=== PATIENT | female | born 1960 | race Caucasian/White ===

== ENCOUNTER 2016-08-03 21:12 | Inpatient (IN) | payer BC, OTHER ==
[~2016-08-03] VITALS: Ht 157.5 cm; Wt 74.7 kg
[~2016-08-03 21:12] MED LIST: ADVIN50/60 INH; BACL10TA PO; CETI10TA84 PO; ERGO1CAP35 PO; IPRASOL4 INH; LORA-741 PO; LPT/40 PO; MOME50SP5 NAE; NAPR-1169 PO; PRED20TA2 PO; PROM6.25 PO; PSEU120T2 PO; PSEU60TA80 PO; PTDOPS OPB; TRAM-10 PO
[2016-08-03] MEDS ORDERED: SODIUM CHLORIDE 0.9% 1000ML 1,000 ML IV STA ×3 (21:26→22:03)
[2016-08-03] MEDS ORDERED: ALBUT/IPRATROP 3MG/0.5MG NEB 3 ML VIAL INH STA (21:26)
[2016-08-03] MEDS ORDERED: METHYLPREDNISOLONE 125 MG VIAL IV STA (21:26)
[2016-08-03 21:52] LABS: VEN BLD GAS O2 SATURATION 85.7 %; VEN BLOOD GAS BASE EXCESS 0.3 mmol/L
[2016-08-03] MEDS ORDERED: AZITHROMYCIN 250 MG TAB PO STA (22:03)
[2016-08-03] MEDS ORDERED: CEFTRIAXONE SOD INJ 1 GM ADDVIAL IV STA (22:03)
[2016-08-03 22:04] LABS: PARTIAL THROMBOPLASTIN RATIO 1.1; PROTHROMBIN TIME (PATIENT) 10.4 SECONDS (9.0-12.0)
[2016-08-03 22:10] LABS: ALT/SGPT 18 U/L (12-78); BASO % 0.1 %; BASO ABS # 0.02 K/uL (0-0.2); BLOOD UREA NITROGEN 23 mg/dl (7-18); BUN/CREATININE RATIO 25.9 (10-20); CARBON DIOXIDE 23 mmol/L (21-32); CHLORIDE 105 mmol/L (98-107); COMPLETE YES; EOS % 0.9 %; GLUCOSE 192 mg/dl (70-99); HEMATOCRIT 41.3 % (37-47); IG% 0.2 %; LYMPH ABS # 3.34 K/uL (1.2-3.4); MAGNESIUM 1.9 mg/dl (1.8-2.4); MEAN CELL VOLUME 92.4 fL (80-100); MEAN CORPUSCULAR HEMOGLOBIN 30.9 pg (25-34); MEAN CORPUSCULAR HGB CONC 33.4 g/dl (32-36); MEAN PLATELET VOLUME 10.5 fL (7.4-10.4); MONO % 8.5 %; NEUT % 65.3 %; PLATELET COUNT 266 K/uL (130-400); POTASSIUM 3.3 mmol/L (3.5-5.1); RED BLOOD COUNT 4.47 M/uL (4.2-5.4); SODIUM 140 mmol/L (136-145); WHITE BLOOD COUNT 13.35 K/uL (4.8-10.8)
--- NOTE | 2016-08-03 22:13 | DIAGNOSTIC IMAGING REPORT ---
CHEST ONE VIEW PORTABLE CLINICAL HISTORY: Fever, cough. Tobacco use. COMPARISON STUDY: Chest radiograph March 11, [address] March 13, 2013. FINDINGS: Lung volumes are normal. There is no pneumothorax or pleural effusion. Mild interstitial thickening is present. There is no lobar consolidation. Cardiac size is normal. Mediastinal contours are normal. There is no convincing evidence for pulmonary edema. There may be calcific tendinitis of the right rotator cuff. IMPRESSION: Mild nonspecific interstitial thickening. Electronically signed by: Rakesh Lutz M.D. 08/03/2016 10:12 PM Dictated Date/Time: 08/03/2016 10:07 PM
[2016-08-03 22:15] LABS: ALB/GLOB RATIO 0.8 (0.9-2); ALKALINE PHOSPHATASE 86 U/L (45-117); AST/SGOT 13 U/L (15-37)
[2016-08-03 22:19] LABS: CALCIUM 8.4 mg/dl (8.5-10.1)
[2016-08-03] MEDS ORDERED: IPRASOL4 INH (22:33)
[2016-08-03] MEDS ORDERED: GLC500 PO (22:33)
[2016-08-03] MEDS ORDERED: FLUT1INH INH (22:33)
--- NOTE | 2016-08-03 22:33 | History and Physical ---
History & Physical Date & Time of Service: Aug 03, 2016 at 22:32 Chief Complaint: Fever,Tightness In Chest,Cough Primary Care Physician: Lisa Osei D.O. History of Present Illness Source: patient 56 yo F with hx of type 2 DM , depression , ongoing tobacco use, COPD , presented to ED with complain of ongoing cough , SOB for the past 1 weeks pt mentioned that she felt sick stayed in bed all day last Friday , started to have cough with whitish sputum production mentions of having chills thinks the rain and mold has caused to worsened her COPD had significant SOB with ASENCIO has not seek any medical advice smokes 1 pk cig a day , has not been able to smoke in past 1 week due to SOB / cough mentions of smoking 1 cig today with Menthol in it ? to open up her airways in the ED , pt continues to cough was found to be hypoxic in room air 89 % spo2 improved to 93 % with 2 L 02 Past Medical/Surgical History Medical Problems: (1) ASTHMA, UNSPECIFIED Status: Chronic (2) Cholecystectomy Status: Resolved (3) Hysterectomy Status: Resolved Social History Smoking Status: Current Every Day Smoker Drug Use: none Marital Status: single Housing status: lives with family Occupational Status: employed Immunizations History of Influenza Vaccine: Yes Influenza Vaccine Date: Jan 10, 2013 History of Tetanus Vaccine?: Yes Tetanus Immunization Date: Nov 23, 2012 History of Pneumococcal: Unknown Pneumococcal Date: Sep 24, 2008 History of Hepatitis B Vaccine: Yes Multi-Drug Resistant Organisms History of MDRO: No Allergies Coded Allergies: Naproxen (Unverified Adverse Reaction, Intermediate, N/V, 03/12/13) Home Medications Scheduled Atorvastatin (Lipitor), 40 MG PO DAILY Fluticasone Furoate-Vilanterol (Breo Ellipta), 1 PUFF INH DAILY Fluticasone Prop/Salmeterol (Advair Diskus 500/50 60 Dose), 1 PUFF INH BID Metformin HCl (Metformin HCl), 500 MG PO BID Prednisone (Prednisone Tab), 0 PO DAILY Scheduled PRN Ipratropium-Albuterol (Duoneb), 1 TREATMENT INH Q4H PRN for SOB/Wheezing Lorazepam (Ativan), 0.5 MG PO TID PRN for Anxiety Tramadol (Ultram), 50 MG PO Q6H PRN for Pain Review of Systems Constitutional: + fever, + chills, + sweats, + weakness, + fatigue Respiratory: + cough, + sputum, + wheezing, + shortness of breath, + dyspnea on exertion, + dyspnea at rest Cardiovascular: + chest pain (with coughing ) Abdomen: + diarrhea (has chronic diarrhea with metformin ) Genitourinary - Female: No dysuria, No urinary frequency, No urinary urgency, No urinary incontinence, No urinary retention, No hematuria, No dysmenorrhea, No menorrhagia, No metrorrhagia, No rash, No vaginal bleeding, No vaginal discharge, No vaginal itching, No vulvodynia, No , No problem reported Neurologic: No memory loss, No paralysis, No weakness, No numbness/tingling, No vertigo, No balance problems, No problem reported Physical Exam Vital Signs Date Time Temp Pulse Resp B/P (MAP) Pulse Ox O2 Delivery O2 Flow Rate FiO2 08/03/16 21:49 94 Nasal Cannula 2.0 08/03/16 21:44 97 22 122/69 89 Room Air 08/03/16 21:30 91 08/03/16 21:26 91 Room Air 08/03/16 21:19 91 Room Air 08/03/16 21:13 37.5 96 20 135/81 89 Room Air General Appearance: no apparent distress Eyes: sclerae normal Respiratory/Chest: + respiratory distress, + decreased breath sounds, + rhonchi , + wheezing Cardiovascular: + tachycardia Abdomen/GI: normal bowel sounds, non tender, soft Extremities/Musculoskelatal: no pedal edema, normal range of motion Neurologic/Psych: alert, normal mood/affect, oriented x 3 Skin: normal color, warm/dry, no rash Lymphatic: no adenopathy Diagnostics Laboratory Results Results Past 24 Hours Test 08/03/16 21:45 08/03/16 21:46 08/03/16 21:49 Range/Units White Blood Count 13.35 4.8-10.8 K/uL Red Blood Count 4.47 4.2-5.4 M/uL Hemoglobin 13.8 12.0-16.0 g/dL Hematocrit 41.3 37-47 % Mean Corpuscular Volume 92.4 80-100 fL Mean Corpuscular Hemoglobin 30.9 25-34 pg Mean Corpuscular Hemoglobin Concent 33.4 32-36 g/dl Platelet Count 266 130-400 K/uL Mean Platelet Volume 10.5 7.4-10.4 fL Neutrophils (%) (Auto) 65.3 % Lymphocytes (%) (Auto) 25.0 % Monocytes (%) (Auto) 8.5 % Eosinophils (%) (Auto) 0.9 % Basophils (%) (Auto) 0.1 % Neutrophils # (Auto) 8.70 1.4-6.5 K/uL Lymphocytes # (Auto) 3.34 1.2-3.4 K/uL Monocytes # (Auto) 1.14 0.11-0.59 K/uL Eosinophils # (Auto) 0.12 0-0.5 K/uL Basophils # (Auto) 0.02 0-0.2 K/uL RDW Standard Deviation 41.1 36.4-46.3 fL RDW Coefficient of Variation 12.1 11.5-14.5 % Immature Granulocyte % (Auto) 0.2 % Immature Granulocyte # (Auto) 0.03 0.00-0.02 K/uL Prothrombin Time 10.4 9.0-12.0 SECONDS Prothromb Time International Ratio 1.0 0.9-1.1 Activated Partial Thromboplast Time 28.7 21.0-31.0 SECONDS Partial Thromboplastin Ratio 1.1 Venous Blood pH 7.44 7.36-7.41 Venous Blood Partial Pressure CO2 37 38.0-50.0 mmHg Venous Blood Partial Pressure O2 50 mmHg Venous Blood HCO3 24 mmol/L Venous Blood Oxygen Saturation 85.7 % Venous Blood Base Excess 0.3 mmol/L Sodium Level 140 136-145 mmol/L Potassium Level 3.3 3.5-5.1 mmol/L Chloride Level 105 98-107 mmol/L Carbon Dioxide Level 23 21-32 mmol/L Anion Gap 12.0 3-11 mmol/L Blood Urea Nitrogen 23 7-18 mg/dl Creatinine 0.90 0.60-1.20 mg/dl Est Creatinine Clear Calc Drug Dose 67.1 ml/min Estimated GFR () 84.0 Estimated GFR (Non- 72.5 BUN/Creatinine Ratio 25.9 10-20 Random Glucose 192 70-99 mg/dl Calcium Level 8.4 8.5-10.1 mg/dl Magnesium Level 1.9 1.8-2.4 mg/dl Total Bilirubin 0.3 0.2-1 mg/dl Aspartate Amino Transf (AST/SGOT) 13 15-37 U/L Alanine Aminotransferase (ALT/SGPT) 18 12-78 U/L Alkaline Phosphatase 86 45-117 U/L Total Creatine Kinase 97 26-192 U/L Creatine Kinase MB 1.0 0.5-3.6 ng/ml Creatine Kinase MB Ratio 1.0 0-3.0 Troponin I < 0.015 0-0.045 ng/ml Total Protein 7.1 6.4-8.2 gm/dl Albumin 3.2 3.4-5.0 gm/dl Globulin 3.9 2.5-4.0 gm/dl Albumin/Globulin Ratio 0.8 0.9-2 Bedside Lactic Acid Venous 2.63 0.90-1.70 mmol/L Bedside Troponin I < 0.030 0-0.045 ng/ml Microbiology Results 08/03/16 Blood Culture, Received Pending 08/03/16 Blood Culture, Received Pending Diagnostic Radiology CHEST ONE VIEW PORTABLE CLINICAL HISTORY: Fever, cough. Tobacco use. COMPARISON STUDY: Chest radiograph March 11, [address] March 13, 2013. FINDINGS: Lung volumes are normal. There is no pneumothorax or pleural effusion. Mild interstitial thickening is present. There is no lobar consolidation. Cardiac size is normal. Mediastinal contours are normal. There is no convincing evidence for pulmonary edema. There may be calcific tendinitis of the right rotator cuff. IMPRESSION: Mild nonspecific interstitial thickening. Impression Assessment and Plan SOB /COUGH /COPD EXACERBATION : presented with hypoxia , COPD exacerbation symptom improved with Nex tx , Solu medrol admit to tele 02 supplement IV steroid 40 mg q 8hrs Duo neb tx empiric abx with Levaquin Pulmonology eval requested -pt is known to Moe Wan PA-C /Dr Cohn TOBACCO USE : smokes 1 pk cig a day nicotine patch ordered smoking cessation requested TYPE 2 DM : on Metformin BSG elevated > 200 poorly compliant - mentions of not taking Metformin for GI symptom /Diarrhea insulin SSI/BASAL Lantus ordered HB A1c in am lab expected BSG to be elevated with IV steroids Pharmacy consulted for glycemic control HYPERLIPIDEMIA : cont statin DEPRESSION /ANXIETY DISORDER cont home regimen of PRN Ativan CODE STATUS : DNR As per patient DVT PROPHYLAXIS : sub q heparin DISPOSITION : to home when medically stable Medicine follow up with Dr Wagner Level of Care Telemetry Resuscitation Status DO NOT RESUSCITATE VTE Prophylaxis Given or contraindicated: Unfractionated heparin SQ Additional Copies To Lisa Osei D.O.
[2016-08-03] MEDS ORDERED: PRED20TA2 PO (22:34)
[2016-08-03] MEDS ORDERED: POTASSIUM CHLORIDE 10 MEQ TABCR PO STA (22:40)
[2016-08-03] MEDS ORDERED: GLUCAGON FOR INJ 1 MG VIAL SQ PRN (22:45)
[2016-08-03] MEDS ORDERED: GLUCOSE 10 TABS/TUBE PO PRN (22:45)
[2016-08-03] MEDS ORDERED: ACETAMINOPHEN 325 MG TAB PO PRN (22:45)
[2016-08-03] MEDS ORDERED: DEXTROSE 50% 50 ML SYR IV PRN (22:45)
[2016-08-03] MEDS ORDERED: ZOLPIDEM TARTRATE 5 MG TAB PO PRN (22:45)
[2016-08-03] MEDS ORDERED: LORAZEPAM 0.5 MG TAB PO PRN (22:45)
[2016-08-03] MEDS ORDERED: POLYETHYLENE (MIRALAX) 17 GM PACK PO PRN (22:45)
[2016-08-03] MEDS ORDERED: GLUCOSE 40% GEL 15 GM TUBE PO PRN (22:45)
[2016-08-03] MEDS ORDERED: TRAMADOL HCL 50 MG TAB PO PRN (22:45)
[2016-08-03] MEDS ORDERED: ONDANSETRON INJ 2 MG/ML 2 ML VIAL IV PRN (22:45)
[2016-08-03] MEDS ORDERED: ALUMINUM/MAGNESIUM/SIMETH (MAALOX MAX) 30 ML UDC PO PRN (22:45)
[2016-08-03] MEDS ORDERED: MAGNESIUM HYDROXIDE SUSP 30 ML UDC PO PRN (22:45)
[2016-08-03] MEDS ORDERED: LEVOFLOXACIN / D5W 500 MG in PREMIXED IN D5W 100 ML IV SCH (23:00)
[2016-08-03 23:10] VITALS: BP 136/57; PULSE 88; TEMP 37.2; O2SAT 91; Ht 157.5 cm; Wt 74.7 kg
[2016-08-03] MEDS ORDERED: GUAIFENESIN/CODEINE 100MG/10MG 5ML UDC PO PRN (23:15)
[2016-08-03] MEDS ORDERED: PHARMACY GLYCEMIC MGMT CONSULT PRN (23:30)
[2016-08-03] MEDS: ALBUT/IPRATROP 3MG/0.5MG NEB 3 ML VIAL INH SCH (23:40)
[2016-08-03 23:41] VITALS: PULSE 90; O2SAT 94
[2016-08-03] MEDS: SODIUM CHLORIDE 0.9% 1000ML 1,000 ML IV SCH (23:59)
[2016-08-04] VITALS (11 sets, daily range): BP systolic 109–143; BP diastolic 58–76; PULSE 56–99; TEMP 36.4–37; O2SAT 90–94
[2016-08-04] MEDS: NICOTINE 21 MG/24 HR TDSY TD SCH
[2016-08-04] MEDS: INSULIN ASPART 100 UNITS/ML 3 ML PEN SC SCH ×5 (00:06→21:26)
[2016-08-04] MEDS: INSULIN GLARGINE SOLOSTAR 100 UNITS/ML 3 ML PEN SC SCH ×3 (00:07→21:26)
[2016-08-04 02:23] LABS: URINE APPEARANCE CLEAR (CLEAR); URINE BILIRUBIN NEG (NEG); URINE COLOR YELLOW; URINE NITRITE NEG (NEG); URINE SPECIFIC GRAVITY 1.015 (1.000-1.030); UROBILINOGEN NEG (NEG); ZZUR CULT IF INDIC CLEAN CATCH NO
[2016-08-04 02:28] LABS: MANUAL MICROSCOPIC REQUIRED? NO; REVIEW REQ? NO
--- NOTE | 2016-08-04 05:05 | EMERGENCY ROOM VISIT NOTE ---
History First contact with patient: 21:19 Chief Complaint: SHORTNESS OF BREATH Stated Complaint: COPD EXACERBATION Nursing Triage Summary: patient presents with c/o shortness of breath, congestion, cough for past four days that have not improved. also c/o low grade fevers. History of Present Illness The patient is a 56 year old female who presents to the Emergency Room with complaints of cough, congestion, wheezing, shortness of breath with fever and chills for the past few days. Patient states her home sats were in the 70s. She tried a nebulizer with no improvement. Patient denies abdominal pain, neck stiffness, headache, vomiting, diarrhea, sore throat. She is tolerate by mouth fluids and food. She continues to smoke. She does have asthma. Review of Systems See HPI for pertinent positives & negatives. A total of 10 systems reviewed and were otherwise negative. Past Medical/Surgical History Medical Problems: (1) ASTHMA, UNSPECIFIED (2) Cholecystectomy (3) COPD exacerbation (4) Hysterectomy Social History Smoking Status: Current Every Day Smoker Alcohol Use: none Drug Use: none Marital Status: single Housing Status: lives with family Occupation Status: employed Current/Historical Medications Scheduled Atorvastatin (Lipitor), 40 MG PO DAILY Fluticasone Furoate-Vilanterol (Breo Ellipta), 1 PUFF INH DAILY Fluticasone Prop/Salmeterol (Advair Diskus 500/50 60 Dose), 1 PUFF INH BID Metformin HCl (Metformin HCl), 500 MG PO BID Prednisone (Prednisone Tab), 0 PO DAILY Scheduled PRN Ipratropium-Albuterol (Duoneb), 1 TREATMENT INH Q4H PRN for SOB/Wheezing Lorazepam (Ativan), 0.5 MG PO TID PRN for Anxiety Tramadol (Ultram), 50 MG PO Q6H PRN for Pain Allergies Coded Allergies: Naproxen (Unverified Adverse Reaction, Intermediate, N/V, 03/12/13) Physical Exam Vital Signs Date Time Temp Pulse Resp B/P (MAP) Pulse Ox O2 Delivery O2 Flow Rate FiO2 08/03/16 21:49 94 Nasal Cannula 2.0 08/03/16 21:44 97 22 122/69 89 Room Air 08/03/16 21:30 91 08/03/16 21:26 91 Room Air 08/03/16 21:19 91 Room Air 08/03/16 21:13 37.5 96 20 135/81 89 Room Air Pain Rating (0-10): 0 Physical Exam VITALS: Vitals are noted on the nurse's note and reviewed by myself. Vital signs hypoxic GENERAL: Pleasant female having difficulty speaking in full sentences, audible wheeze SKIN: The skin was without rashes, erythema, edema, or bruising. There is no tenting of the skin. Capillary reflex less than 2 seconds. HEAD: Normocephalic atraumatic. EARS: External auditory canals clear, tympanic membranes pearly gtz without erythema or effusion bilaterally. EYES: Pupils equal round and reactive to light and accommodation. Conjunctivae without injection, sclerae without icterus. Extraocular movements intact. NOSE: Patent, turbinates without inflammation or discharge. No sinus tenderness. MOUTH: Mucous membranes moist. Pharynx without erythema or exudate. Uvula midline. Airway patent. Tongue does not deviate. NECK: Supple without nuchal rigidity. No lymphadenopathy. No thyromegaly. Cervical spine is nontender. No JVD. HEART: Regular rate and rhythm without murmurs gallops or rubs. LUNGS: Diffuse inspiratory and end expiratory wheezes, without rales or rhonchi. No dullness to percussion. No retractions or accessory muscle use. ABDOMEN: Positive bowel sounds x 4. Normal tympanic percussion. Soft, nontender, without masses or organomegaly. Felton sign negative. No guarding or rebound tenderness. MUSCULOSKELETAL: No muscle atrophy, erythema, or edema noted. NEURO: Patient was alert and oriented to person place and time. Normal sensation to light and sharp touch. No focal neurological deficits. Medical Decision & Procedures Laboratory Results Test 08/03/16 21:45 08/03/16 21:46 08/03/16 21:49 RDW Standard Deviation 41.1 fL (36.4-46.3) RDW Coefficient of Variation 12.1 % (11.5-14.5) White Blood Count 13.35 K/uL (4.8-10.8) Red Blood Count 4.47 M/uL (4.2-5.4) Hemoglobin 13.8 g/dL (12.0-16.0) Hematocrit 41.3 % (37-47) Mean Corpuscular Volume 92.4 fL (80-100) Mean Corpuscular Hemoglobin 30.9 pg (25-34) Mean Corpuscular Hemoglobin Concent 33.4 g/dl (32-36) Platelet Count 266 K/uL (130-400) Mean Platelet Volume 10.5 fL (7.4-10.4) Neutrophils (%) (Auto) 65.3 % Lymphocytes (%) (Auto) 25.0 % Monocytes (%) (Auto) 8.5 % Eosinophils (%) (Auto) 0.9 % Basophils (%) (Auto) 0.1 % Neutrophils # (Auto) 8.70 K/uL (1.4-6.5) Lymphocytes # (Auto) 3.34 K/uL (1.2-3.4) Monocytes # (Auto) 1.14 K/uL (0.11-0.59) Eosinophils # (Auto) 0.12 K/uL (0-0.5) Basophils # (Auto) 0.02 K/uL (0-0.2) Immature Granulocyte % (Auto) 0.2 % Immature Granulocyte # (Auto) 0.03 K/uL (0.00-0.02) Prothrombin Time 10.4 SECONDS (9.0-12.0) Prothromb Time International Ratio 1.0 (0.9-1.1) Activated Partial Thromboplast Time 28.7 SECONDS (21.0-31.0) Partial Thromboplastin Ratio 1.1 Venous Blood pH 7.44 (7.36-7.41) Venous Blood Partial Pressure CO2 37 mmHg (38.0-50.0) Venous Blood Partial Pressure O2 50 mmHg Venous Blood HCO3 24 mmol/L Venous Blood Oxygen Saturation 85.7 % Venous Blood Base Excess 0.3 mmol/L Est Creatinine Clear Calc Drug Dose 67.1 ml/min Magnesium Level 1.9 mg/dl (1.8-2.4) Total Bilirubin 0.3 mg/dl (0.2-1) Aspartate Amino Transf (AST/SGOT) 13 U/L (15-37) Alanine Aminotransferase (ALT/SGPT) 18 U/L (12-78) Alkaline Phosphatase 86 U/L (45-117) Total Creatine Kinase 97 U/L (26-192) Creatine Kinase MB 1.0 ng/ml (0.5-3.6) Creatine Kinase MB Ratio 1.0 (0-3.0) Troponin I < 0.015 ng/ml (0-0.045) Total Protein 7.1 gm/dl (6.4-8.2) Albumin 3.2 gm/dl (3.4-5.0) Globulin 3.9 gm/dl (2.5-4.0) Albumin/Globulin Ratio 0.8 (0.9-2) Procalcitonin < 0.05 ng/ml (0-0.5) Bedside Lactic Acid Venous 2.63 mmol/L (0.90-1.70) Bedside Troponin I < 0.030 ng/ml (0-0.045) Medications Administered Medications (Trade) Dose Ordered Sig/Katey Route Start Time Stop Time Status Last Admin Dose Admin Albuterol/ Ipratropium (Duoneb) 3 ml NOW STAT INH 08/03/16 21:26 08/03/16 21:29 DC 08/03/16 21:26 3 ML Methylprednisolone Sodium Succinate (Solu-Medrol IV) 125 mg NOW STAT IV 08/03/16 21:26 08/03/16 21:29 DC 08/03/16 21:45 125 MG Sodium Chloride 1,000 ml @ 999 mls/hr Q1H1M STAT IV 08/03/16 21:26 08/03/16 22:26 DC 08/03/16 21:45 999 MLS/HR Sodium Chloride 1,000 ml @ 125 mls/hr Q8H STAT IV 08/03/16 21:26 08/03/16 23:20 DC 08/03/16 21:45 125 MLS/HR Ceftriaxone Sodium (Rocephin Inj) 1 gm NOW STAT IV 08/03/16 22:03 08/03/16 22:04 DC 08/03/16 22:11 1 GM Azithromycin (Zithromax Tab) 500 mg NOW STAT PO 08/03/16 22:03 08/03/16 22:04 DC 08/03/16 22:11 500 MG Sodium Chloride 1,000 ml @ 999 mls/hr Q1H1M STAT IV 08/03/16 22:03 08/03/16 23:03 DC 08/03/16 22:12 999 MLS/HR ED Course Prior records/ancillary studies reviewed. Triage Nursing notes reviewed. Additional history obtained from the family. The patient's history was concerning for respiratory difficulties. Differential diagnosis: Etiologies such as infections, reactive airway disease, pneumonia, pneumothorax , COPD, CHF, cardiac ischemia, pulmonary embolism, musculoskeletal, gastrointestinal, as well as others were entertained. Physical examination: As above. ER treatment provided: Nebulizer, antibiotics, steroids On reassessment the patient felt better. Diagnostic interpretation by me: The electrocardiogram was negative for acute ischemic or pathologic change. Normal sinus, right bundle branch block, no acute ST-T wave changes, rate of 92. Impression right bundle branch block interpreted by myself The labs revealed leukocytosis, elevated lactic acid Imaging studies: Chest x-ray as above. CLINICAL HISTORY: Fever, cough. Tobacco use. COMPARISON STUDY: Chest radiograph March 11, [address] March 13, 2013. FINDINGS: Lung volumes are normal. There is no pneumothorax or pleural effusion. Mild interstitial thickening is present. There is no lobar consolidation. Cardiac size is normal. Mediastinal contours are normal. There is no convincing evidence for pulmonary edema. There may be calcific tendinitis of the right rotator cuff. IMPRESSION: Mild nonspecific interstitial thickening. Electronically signed by: Rakesh Lutz M.D. Consultation: A consultation was placed with Dr. Philip, hospitalist. The case was discussed and diagnostics were reviewed. The patient was evaluated in the ER for further treatment. This appears to be consistent with asthma exacerbation with hypoxemia. Patient be evaluated by medicine for possible admission. Her sats are still low. She is still wheezing. No pneumonia. She had a high lactic acid was given antibiotics. She was hydrated as above. By the evaluation outlined above emergent etiologies such as CHF, cardiac ischemia, pulmonary embolism, pneumothorax, musculoskeletal, as well as others were deemed relatively unlikely. The pt informed about the findings as listed above. All questions were answered and pleased with the treatment. Case reviewed with my attending Medical Decision As above Impression Primary Impression: Asthma with exacerbation Additional Impression: Hypoxemia Departure Information Dispostion Admitted as an inpatient Condition GOOD Referrals Lisa Osei D.O. (PCP) Forms HOME CARE DOCUMENTATION FORM, IMPORTANT VISIT INFORMATION Patient Instructions My [facility] Problem Qualifiers
[2016-08-04] MEDS ORDERED: METHYLPREDNISOLONE IV 40 MG in SYRINGE 0 ML IV SCH (06:00)
[2016-08-04 06:33] LABS: HEMATOCRIT 39.8 % (37-47); MEAN CELL VOLUME 92.3 fL (80-100); MEAN CORPUSCULAR HEMOGLOBIN 31.6 pg (25-34); MEAN CORPUSCULAR HGB CONC 34.2 g/dl (32-36); MEAN PLATELET VOLUME 10.5 fL (7.4-10.4); PLATELET COUNT 246 K/uL (130-400); RED BLOOD COUNT 4.31 M/uL (4.2-5.4); WHITE BLOOD COUNT 7.52 K/uL (4.8-10.8)
[2016-08-04] MEDS: ALBUT/IPRATROP 3MG/0.5MG NEB 3 ML VIAL INH SCH ×4 (07:01→19:14)
[2016-08-04 07:18] LABS: BUN/CREATININE RATIO 22.1 (10-20); CALCIUM 8.3 mg/dl (8.5-10.1); CREATININE 0.84 mg/dl (0.60-1.20); POTASSIUM 4.1 mmol/L (3.5-5.1)
[2016-08-04 07:31] LABS: BETA-HYDROXYBUTYRATE 0.86 mg/dL (0.2-2.81)
[2016-08-04] MEDS: FLUTICASONE/SALMETEROL (ADVAIR) 500/50 INH 14 PUFF INH SCH ×2 (07:59→21:22)
[2016-08-04] MEDS: SODIUM CHLORIDE 0.9% 1000ML 1,000 ML IV SCH ×2 (08:00→23:13)
[2016-08-04] MEDS: ATORVASTATIN 40 MG TAB PO SCH (08:00)
[2016-08-04] MEDS: HEPARIN SOD 5000 UNIT/0.5 ML CARP SQ SCH ×2 (08:02→21:00)
[2016-08-04] MEDS ORDERED: INSULIN ASPART 100 UNITS/ML 3 ML PEN SC ONE (09:15)
[2016-08-04] MEDS ORDERED: INSULIN GLARGINE SOLOSTAR 100 UNITS/ML 3 ML PEN SC ONE (09:15)
--- NOTE | 2016-08-04 12:24 | Pharmacy Progress Note ---
Glycemic Control Intl Consult Date of Service Aug 04, 2016. Scope Glycemic Pharmacist consulted by Dr Philip on 08/04/16 for glycemic control and to write orders per [facility] inpatient glycemic control protocol Objective Weight (Kilograms): 73.800 Accuchecks BSG (last 24hrs): Test 08/03/16 21:45 08/04/16 00:02 08/04/16 06:16 08/04/16 11:36 Random Glucose 192 mg/dl (70-99) 307 mg/dl (70-99) Bedside Glucose 239 mg/dl (70-90) 212 mg/dl (70-90) Laboratory Data (last 24hrs) Test 08/03/16 21:45 08/04/16 06:16 Anion Gap 12.0 mmol/L 10.0 mmol/L BUN/Creatinine Ratio 25.9 22.1 Blood Urea Nitrogen 23 mg/dl 19 mg/dl Creatinine 0.90 mg/dl 0.84 mg/dl Potassium Level 3.3 mmol/L 4.1 mmol/L Sodium Level 140 mmol/L 143 mmol/L White Blood Count 13.35 K/uL 7.52 K/uL Red Blood Count 4.47 M/uL Hemoglobin 13.8 g/dL Hematocrit 41.3 % Mean Corpuscular Volume 92.4 fL Mean Corpuscular Hemoglobin 30.9 pg Mean Corpuscular Hemoglobin Concent 33.4 g/dl Platelet Count 266 K/uL Mean Platelet Volume 10.5 fL Neutrophils (%) (Auto) 65.3 % Lymphocytes (%) (Auto) 25.0 % Monocytes (%) (Auto) 8.5 % Eosinophils (%) (Auto) 0.9 % Basophils (%) (Auto) 0.1 % Neutrophils # (Auto) 8.70 K/uL Lymphocytes # (Auto) 3.34 K/uL Monocytes # (Auto) 1.14 K/uL Eosinophils # (Auto) 0.12 K/uL Basophils # (Auto) 0.02 K/uL HbA1c Test 08/04/16 06:16 Recent Pertinent Medications Outpatient Anti-diabetic Regimen: * Metformin 500mg PO BID * A1c = ? results are pending The patient is currently receiving: * Basal insulin: Lantus 10 units every 12 hours * Correctional Insulin: Novolog Correction per scale ACHS Goal Range: Low 100 mg/dL - High 140 mg/dL Correction Factor: 30 mg/dL/unit * Prandial insulin: Per carb ratio of 1 unit per 15 grams CHO consumed * Oral Agents: None currently Risk Factors for Insulin Resistance: * Steroids: Solu-Medrol 125mg x 1, followed by 40mg IV Q 8 hours * Infection: COPD exacerbation; receiving Levofloxacin IV * Diet: ordered T2DM diet and tolerating well thus far Assessment & Plan ASSESSMENT: 08/04/16 * Type 2 diabetic admitted yesterday for fever, cough, chest "tightness" and increased sputum production - patient is being treated for COPD exac w/ ABX, nebs and steroids * Degree of glycemic control w/ metformin monotherapy as an outpatient unclear, an A1c has been ordered for today however the result is not yet available. Her A1c 03/2016 was 7.7% * BSGs did climb overnight and peaked at 307 and this was a fasting number - the patient is clearly basal insulin deficient - however only had 10 units of Lantus on board (1/2 of the total daily basal dose). I do suspect that she may require more however with the current steroid dose. * Novolog CF and CR may not be adequate based upon current response, will escalate these doses as well. I suspect the patient will require a minimum 0.6- 0.7units/kg/day from both basal + bolus insulin. PLAN FOR INPATIENT GLYCEMIC CONTROL: * Increasing Lantus to 14 units SQ BID; give additional 4 units x 1 this AM * Changing correction factor to 20 mg/dl/unit * Changing carb ratio to 1 unit per 8 grams CHO consumed * Changing goal range to Low 110 mg/dL - High 140 mg/dL * Add BSG check at 0200 tonight and cover w/ above Novolog order * Reevaluate insulin doses with each step down in steroid dose * Please note that the plan above was derived based on current level of insulin resistance and hospital stress. These recommendations are appropriate for inpatient admission only. Plan of care upon discharge will need to be reassessed to avoid potential outpatient hypo/hyperglycemia. Thank you.
--- NOTE | 2016-08-04 12:27 | Pulmonary Consultation ---
History General Date of Service: Aug 04, 2016. Stated Complaint: Shortness of Breath HPI The patient is a 56 year old female who presents to [facility] with complaints of Copd Exacerbation. The patient's primary care provider is Lisa Osei D.O.. 56 yo F with hx of type 2 DM , depression , ongoing tobacco use, COPD , presented to ED with complain of ongoing cough , SOB for the past 1 week. The patient notes chest tightness and progressive dyspnea on exertion over the previous week. Last week and she noted fever or chills and right naris but no associated productive cough, pleurisy R classic cardiac chest pain. She has had a long history with diagnosed COPD but her previous pulmonary function test did not verify this diagnosis. The patient has received his antibiotics, steroids and diuresis over the past 24 hours and notes a dramatic improvement in her overall respiratory status. Denies: Fever, chills, cardiac chest pain, pleurisy, productive cough Current Work-Up WBC: 13K8K (Neutro#: 8.70>) PLT: 266K INR/PT/aPTT: 1.0/10.4/28.7 BUN/Cr: 23/0.9019/0.84 Procalcitonin: <0.05 (LTRIs) VB.44/37 corrected to ABG 7.48/31 EKG right bundle branch block rate 92 stable compared to 03/13/2013 Radiology CXR(08/03/16) signs of pulmonary edema, and streak atelectasis in the RLL Previous Work-Up PFT (11/03/13) WNL Spirometry : FEV1/FVC: 81, FEV1: 91%, FVC: 93%, borderline FVC increase s/ p dilators Volumes: T% DLCO: 89% Oximetry Study (04/28-08/07) Longest continuous time with SaO2 <88% was 8minutes and 32 seconds ABG (04/12/99) 7.39/42/81/26 (RA) A-a : none (03/12/13) 7.38/45/51/26 (4.5L) A-a: 133 Radiology CXR (03/11/13) bi-basilar parenchymal changes with hilar fullness CTA (03/13/13) No signs of PE Bilateral GGO with atelectasis vs. mucus plugging Cardiac Echo (03/12/13) LV: EF=>70%, hyperdynamic RV: systolic function WNL, TAPSE >1.5cm AV: sclerotic without significant aortic valvular stenosis MV: moderate annular calcification Diastolic dysfunction grade II Current Treatments: 1) Advair 500/50 1 puff BID 2) Methyprednisolone 40mg 8Q IV 3) DuoNebs QID 4) Robitussin-AC 5) Levofoxacin 500mg Historian: patient, EMS Review of Systems Constitutional: reports: no symptoms Eyes: reports: no symptoms ENT: reports: no symptoms Cardiovascular: reports: no symptoms Respiratory: reports: as stated in HPI Gastrointestinal: reports: no symptoms Genitourinary - Female: reports: no symptoms Musculoskeletal: reports: no symptoms Neurologic: reports: no symptoms Psychiatric: reports: no symptoms Endocrine: no symptoms Hematologic / Lymphatic: no symptoms Allergic / Immunologic: no symptoms Past Medical History Past Medical History: 1) ASTHMA, UNSPECIFIED 2) Sinusitis 3) Depression 4) Hyperlipidemia 5) Tobacco use disorder Past Surgical History: 1) Cholecystectomy 2) Hysterectomy 3) Neuroplasty Decompression Median Nerve at Carpal Tunnel Family History Diabetes, neuropathy, coronary artery disease Social History Smoking Status: Current Every Day Smoker Drug Use: none Marital Status: single Housing status: lives with family Occupational Status: employed Hx Tobacco Use In Past Year?: Yes Smoking Status: Current Every Day Smoker Marital status: single Housing status: lives with family Occupational Status: employed Immunizations History of Influenza Vaccine: Yes Influenza Vaccine Date: Jan 10, 2013 History of Tetanus Vaccine?: Yes Tetanus Immunization Date: Nov 23, 2012 History of Pneumococcal: Unknown Pneumococcal Date: Sep 24, 2008 History of Hepatitis B Vaccine: Yes History of MDRO History of MDRO: No Allergies Coded Allergies: Naproxen (Unverified Adverse Reaction, Intermediate, N/V, 03/12/13) Current Medications Reported Home Medications Medications Dose Route/Sig Max Daily Dose Days Date Category Dose Instructions Prednisone Tab (Prednisone) 20 Mg Tab 0 PO DAILY 08/03/16 Reported "COPD KIT" Duoneb (Ipratropium-Albuterol) 3 Ml Nebu 1 Treatment INH Q4H PRN 08/03/16 Reported Breo Ellipta (Fluticasone Furoate-Vilanterol) 1 Inh Inh 1 Puff INH DAILY 08/03/16 Reported Metformin HCl 500 Mg Tab 500 Mg PO BID 08/03/16 Reported Advair Diskus 500/50 60 Dose (Fluticasone Prop/Salmeterol) 1 Ea Aerp 1 Puff INH BID 03/17/13 Rx Ativan (Lorazepam) 0.5 Mg Tab 0.5 Mg PO TID PRN 03/12/13 Reported Ultram (Tramadol HCl) 50 Mg Tab 50 Mg PO Q6H PRN 03/12/13 Reported Lipitor (Atorvastatin) 40 Mg Tab 40 Mg PO DAILY 03/12/13 Reported PATIENT UNSURE IF 40MG OR 80MG. Physical Physical Exam Vital Signs: Date Time Temp Pulse Resp B/P (MAP) Pulse Ox O2 Delivery O2 Flow Rate FiO2 08/04/16 12:00 92 Room Air 08/04/16 08:35 36.9 82 16 120/70 (87) 91 Nasal Cannula 2.0 08/04/16 08:00 92 Nasal Cannula 3.0 08/04/16 07:01 68 16 92 Room Air 08/04/16 04:00 94 Nasal Cannula 3.0 08/04/16 04:00 36.8 79 17 118/69 (85) 94 Nasal Cannula 2.0 08/03/16 23:41 90 16 94 Nasal Cannula 3.0 08/03/16 23:10 37.2 88 22 136/57 91 Nasal Cannula 3.0 08/03/16 22:49 97 22 120/70 93 Nasal Cannula 3.0 08/03/16 21:49 94 Nasal Cannula 2.0 08/03/16 21:44 97 22 122/69 89 Room Air 08/03/16 21:30 91 08/03/16 21:26 91 Room Air 08/03/16 21:19 91 Room Air 08/03/16 21:13 37.5 96 20 135/81 89 Room Air General Appearance: WELL-APPEARING, NO APPARENT DISTRESS Head: NORMOCEPHALIC, ATRAUMATIC Eyes: PERRLA, NO DISCHARGE, EOMI, SCLERAE NORMAL, CONJUNCTIVAE NORMAL ENT: NORMAL EAR EXAM, NORMAL NASAL EXAM, NORMAL MOUTH EXAM, NORMAL THROAT EXAM , NORMAL DENTAL EXAM, NORMAL SINUS EXAM Neck: NORMAL RANGE OF MOTION, NO TENDERNESS, TRACHEA MIDLINE, NO STRIDOR Respiratory: other (mild expiratory wheezing/thoracic ultrasound: B-lines approximately the bottom 20% of the thorax bilaterally no pleural effusion noted ) Cardiovasular: REGULAR RATE/RHYTHM, NORMAL S1S2, NO M/G/R, NO MURMUR, NO GALLOP , NO RUB, NO JVD Abdomen: NON TENDER, NORMAL BOWEL SOUNDS, NO REBOUND, NO MASSES, NO GUARDING, NO ORGANOMEGALY, NORMAL RECTAL EXAM, NO HEMORRHOIDS, NO HERNIA Genitourinary - Female: EXTERNAL GENITALIA NORMAL Back: NORMAL INSPECTION, NO MIDLINE TENDERNESS, NO CVA TENDERNESS, NO PARAVERTEBRAL TTP Upper Extremities: NO EDEMA, NO DEFORMITY, NORMAL ROM Lower Extremities: NO EDEMA, NO DEFORMITY, NORMAL ROM Pulses: carotid (R) (2+), carotid (L) (2+), posterior tibial (R), posterior tibial (L) (2+) Neuro: ALERT, ORIENTED x 3, NORMAL MOTOR EXAM, NORMAL SENSATION, NORMAL CEREBELLAR EXAM Reflexes: biceps (R) (2+), bicpes (L) (2+), achilles (R) (2+), achilles (L) (2+ ) Babinski Testing: right (downgoing), left (downgoing) Psychiatric: NORMAL AFFECT, NO SUICIDAL IDEATION, CONTRACTS FOR SAFETY Diagnostics Labs Results Past 24 Hours Test 08/03/16 21:45 08/03/16 21:46 08/03/16 21:49 08/04/16 00:02 Range/Units White Blood Count 13.35 4.8-10.8 K/uL Red Blood Count 4.47 4.2-5.4 M/uL Hemoglobin 13.8 12.0-16.0 g/dL Hematocrit 41.3 37-47 % Mean Corpuscular Volume 92.4 80-100 fL Mean Corpuscular Hemoglobin 30.9 25-34 pg Mean Corpuscular Hemoglobin Concent 33.4 32-36 g/dl Platelet Count 266 130-400 K/uL Mean Platelet Volume 10.5 7.4-10.4 fL Neutrophils (%) (Auto) 65.3 % Lymphocytes (%) (Auto) 25.0 % Monocytes (%) (Auto) 8.5 % Eosinophils (%) (Auto) 0.9 % Basophils (%) (Auto) 0.1 % Neutrophils # (Auto) 8.70 1.4-6.5 K/uL Lymphocytes # (Auto) 3.34 1.2-3.4 K/uL Monocytes # (Auto) 1.14 0.11-0.59 K/uL Eosinophils # (Auto) 0.12 0-0.5 K/uL Basophils # (Auto) 0.02 0-0.2 K/uL RDW Standard Deviation 41.1 36.4-46.3 fL RDW Coefficient of Variation 12.1 11.5-14.5 % Immature Granulocyte % (Auto) 0.2 % Immature Granulocyte # (Auto) 0.03 0.00-0.02 K/uL Prothrombin Time 10.4 9.0-12.0 SECONDS Prothromb Time International Ratio 1.0 0.9-1.1 Activated Partial Thromboplast Time 28.7 21.0-31.0 SECONDS Partial Thromboplastin Ratio 1.1 Venous Blood pH 7.44 7.36-7.41 Venous Blood Partial Pressure CO2 37 38.0-50.0 mmHg Venous Blood Partial Pressure O2 50 mmHg Venous Blood HCO3 24 mmol/L Venous Blood Oxygen Saturation 85.7 % Venous Blood Base Excess 0.3 mmol/L Sodium Level 140 136-145 mmol/L Potassium Level 3.3 3.5-5.1 mmol/L Chloride Level 105 98-107 mmol/L Carbon Dioxide Level 23 21-32 mmol/L Anion Gap 12.0 3-11 mmol/L Blood Urea Nitrogen 23 7-18 mg/dl Creatinine 0.90 0.60-1.20 mg/dl Est Creatinine Clear Calc Drug Dose 67.1 ml/min Estimated GFR () 84.0 Estimated GFR (Non- 72.5 BUN/Creatinine Ratio 25.9 10-20 Random Glucose 192 70-99 mg/dl Calcium Level 8.4 8.5-10.1 mg/dl Magnesium Level 1.9 1.8-2.4 mg/dl Total Bilirubin 0.3 0.2-1 mg/dl Aspartate Amino Transf (AST/SGOT) 13 15-37 U/L Alanine Aminotransferase (ALT/SGPT) 18 12-78 U/L Alkaline Phosphatase 86 45-117 U/L Total Creatine Kinase 97 26-192 U/L Creatine Kinase MB 1.0 0.5-3.6 ng/ml Creatine Kinase MB Ratio 1.0 0-3.0 Troponin I < 0.015 0-0.045 ng/ml Total Protein 7.1 6.4-8.2 gm/dl Albumin 3.2 3.4-5.0 gm/dl Globulin 3.9 2.5-4.0 gm/dl Albumin/Globulin Ratio 0.8 0.9-2 Procalcitonin < 0.05 0-0.5 ng/ml Bedside Lactic Acid Venous 2.63 0.90-1.70 mmol/L Bedside Troponin I < 0.030 0-0.045 ng/ml Bedside Glucose 239 70-90 mg/dl Test 08/04/16 01:40 08/04/16 06:16 08/04/16 11:36 Range/Units Urine Color YELLOW Urine Appearance CLEAR CLEAR Urine pH 5.0 4.5-7.5 Urine Specific [place] 1.015 1.000-1.030 Urine Protein NEG NEG Urine Glucose (UA) 2+ NEG Urine Ketones NEG NEG Urine Occult Blood NEG NEG Urine Nitrite NEG NEG Urine Bilirubin NEG NEG Urine Urobilinogen NEG NEG Urine Leukocyte Esterase NEG NEG White Blood Count 7.52 4.8-10.8 K/uL Red Blood Count 4.31 4.2-5.4 M/uL Hemoglobin 13.6 12.0-16.0 g/dL Hematocrit 39.8 37-47 % Mean Corpuscular Volume 92.3 80-100 fL Mean Corpuscular Hemoglobin 31.6 25-34 pg Mean Corpuscular Hemoglobin Concent 34.2 32-36 g/dl RDW Standard Deviation 41.0 36.4-46.3 fL RDW Coefficient of Variation 12.0 11.5-14.5 % Platelet Count 246 130-400 K/uL Mean Platelet Volume 10.5 7.4-10.4 fL Sodium Level 143 136-145 mmol/L Potassium Level 4.1 3.5-5.1 mmol/L Chloride Level 110 98-107 mmol/L Carbon Dioxide Level 23 21-32 mmol/L Anion Gap 10.0 3-11 mmol/L Blood Urea Nitrogen 19 7-18 mg/dl Creatinine 0.84 0.60-1.20 mg/dl Est Creatinine Clear Calc Drug Dose 72.0 ml/min Estimated GFR () 91.3 Estimated GFR (Non- 78.8 BUN/Creatinine Ratio 22.1 10-20 Random Glucose 307 70-99 mg/dl Lactic Acid Level 1.4 0.4-2.0 mmol/L Calcium Level 8.3 8.5-10.1 mg/dl Beta-Hydroxybutyric Acid 0.86 0.2-2.81 mg/dL Bedside Glucose 212 70-90 mg/dl Microbiology Results 08/03/16 Blood Culture, Received Pending 08/03/16 Blood Culture, Received Pending 08/04/16 Gram Stain - Final, Resulted 08/04/16 Sputum Culture, Resulted Pending Diagnostic Radiology CXR (03/11/13) bi-basilar parenchymal changes with hilar fullness CTA (03/13/13) No signs of PE Bilateral GGO with atelectasis vs. mucus plugging EKG EKG right bundle branch block rate 92 stable compared to 03/13/2013 Impression Assessment and Plan 56-year-old female admitted with shortness of breath: 1) Respiratory: The patient has no history of COPD and a pulmonary function tests do not show COPD. This time the patient could be having an asthma exacerbation which would fit clinically that she does need to be further workup as an outpatient has 30% of adult onset asthma is in properly diagnosed. This workup can be done with repeating pulmonary function tests, possible methacholine challenge performed at the [facility]. At this time I also switch the patient from IV steroids to by mouth prednisone. She had a peak flow meter able to blow 300 cc the patient is only 62 inches tall. Via peak flow norms this is mildly decreased about 20% but as the patient is showing no signs of acute respiratory insufficiency after monitor on steroids which should be of the discharge later this afternoon. Once again she will need a one to two-week follow-up at the [facility] for further evaluation and workup. #2 Cardiac: Patient does have a previous echocardiogram in history consistent with possible diastolic heart failure. She will need workup as an outpatient and continued mild diuresis while in-house. #3 Outpatient Workup: As an outpatient I suggest this patient have repeat pulmonary function tests and possible methacholine challenge for evaluation of her underlying lung disease. Also suggest we repeat echocardiogram for further evaluation of possible diastolic dysfunction. I do not believe CT angiogram, V/ Q scan and/or more aggressive interventions are necessary at this time. Patient also complains of signs and symptoms consistent with silent GERD will require further follow-up. #4 Discharge medications: Continue Advair Diskus 500/50 one puff twice a day, prednisone orally starting at 40 mg daily and tapering over a 2 week window, initiate Flonase one puff twice each nostril and Proventil inhaler 2 puffs every 6 hours when necessary dyspnea.
--- NOTE | 2016-08-04 13:48 | DIAGNOSTIC IMAGING REPORT ---
CT OF THE CHEST WITHOUT IV CONTRAST CLINICAL HISTORY: Fever, cough, right lower lobe atelectasis. COMPARISON STUDY: 03/13/2013 CT DOSE: 237.29 mGy.cm TECHNIQUE: CT of the thorax was performed from the thoracic inlet to the lung bases. Images are reviewed in the axial, sagittal, and coronal planes. IV contrast was not administered for this examination. FINDINGS: Thyroid: Imaged portions of the thyroid gland are normal in appearance. Thoracic aorta: The thoracic aorta is normal in course and caliber, noting standard 3 vessel arch anatomy. Heart: The heart is normal in size and configuration, without pericardial effusion. Lungs and pleural spaces: No pleural effusions are visualized. There are linear by basilar atelectatic changes. There are multifocal groundglass opacities, relatively similar distribution to the preceding 2013 study. The findings likely represent an infectious/inflammatory pneumonitis. Clinical and imaging follow-up is recommended Mediastinum: Persistent 7 mm upper right paratracheal lymph node. There is no pathologic adenopathy by size criteria [place]: There is no evidence of pathologic hilar adenopathy given the limitations of a noncontrast study Axilla: Clear. Upper abdomen: Partially visualized upper abdominal viscera is within normal limits. Skeletal structures: There are no lytic or blastic osseous lesions. IMPRESSION: 1. Scattered multifocal groundglass opacities, likely secondary to an inflammatory/infectious pneumonitis 2. No evidence of pathologic adenopathy 3. Areas of linear subsegmental atelectatic changes most pronounced within both lower lobes and the lingula Electronically signed by: Guicho Blancas M.D. 08/04/2016 1:47 PM Dictated Date/Time: 08/04/2016 1:42 PM
--- NOTE | 2016-08-04 19:15 | Progress Note ---
Internal Med Progress Note Date of Service: Aug 04, 2016. Provider Documentation: SUBJECTIVE: SOB MUCH IMPROVED COUGH IMPROVING NO CHEST PAIN THINKS HER SYMPTOMS ARE FROM MOLD IN THE HOUSE AFEBRILE OBJECTIVE: Vital Signs-as noted below Exam: General-alert and awake. Not in distress HEENT-Normal hearing Neck-no neck masses, supple Lungs-cta b/l no wheezing or crackles Heart-s1 and s2 heard regular , no murmurs Abdomen-soft bowel sounds non tender no distension Extremities- no edema present no erythema Neuro-alert and awake moves extremities Lab data as noted below. ASSESSMENT & PLAN: SOB /COUGH mostly asthma exacerbation: presented with hypoxia , symptom improved with Nex tx , Solumedrol appreciate pulmonary inputs ct scan possible infectious/inflammatory process will complete 7 day course Levaquin po steroid taper for 2 weeks continue Advair and nebs needs 2 week followup with pulmonary for repoeat pft's. improving TOBACCO USE : smokes 1 pk cig a day nicotine patch ordered smoking cessation counselling TYPE 2 DM : on Metformin BSG elevated > 200 poorly compliant - mentions of not taking Metformin for GI symptom /Diarrhea insulin SSI/BASAL Lantus ordered will f/u hba1c if dont require insulin will d/c on glipizide and close followup with pcp monitor sugars while on steroids. HYPERLIPIDEMIA : cont statin DEPRESSION /ANXIETY DISORDER cont home regimen of PRN Ativan CODE STATUS : DNR As per patient DVT PROPHYLAXIS : sub q heparin DISPOSITION : possible d/c in am Medicine follow up with Dr Wagner Pulmonary followup in 2 weeks Vital Signs: Date Time Temp Pulse Resp B/P (MAP) Pulse Ox O2 Delivery O2 Flow Rate FiO2 08/04/16 16:00 92 Room Air 08/04/16 15:49 36.8 89 16 135/71 (92) 90 Nasal Cannula 08/04/16 14:07 90 16 90 Room Air 08/04/16 12:10 36.4 85 16 143/76 (98) 92 Room Air 08/04/16 12:00 92 Room Air 08/04/16 08:35 36.9 82 16 120/70 (87) 91 Nasal Cannula 2.0 08/04/16 08:00 92 Nasal Cannula 3.0 08/04/16 07:01 68 16 92 Room Air 08/04/16 04:00 94 Nasal Cannula 3.0 08/04/16 04:00 36.8 79 17 118/69 (85) 94 Nasal Cannula 2.0 08/03/16 23:41 90 16 94 Nasal Cannula 3.0 08/03/16 23:10 37.2 88 22 136/57 91 Nasal Cannula 3.0 08/03/16 22:49 97 22 120/70 93 Nasal Cannula 3.0 08/03/16 21:49 94 Nasal Cannula 2.0 08/03/16 21:44 97 22 122/69 89 Room Air 08/03/16 21:30 91 08/03/16 21:26 91 Room Air 08/03/16 21:19 91 Room Air 08/03/16 21:13 37.5 96 20 135/81 89 Room Air Lab Results: Results Past 24 Hours Test 08/03/16 21:45 08/03/16 21:46 08/03/16 21:49 08/04/16 00:02 Range/Units White Blood Count 13.35 4.8-10.8 K/uL Red Blood Count 4.47 4.2-5.4 M/uL Hemoglobin 13.8 12.0-16.0 g/dL Hematocrit 41.3 37-47 % Mean Corpuscular Volume 92.4 80-100 fL Mean Corpuscular Hemoglobin 30.9 25-34 pg Mean Corpuscular Hemoglobin Concent 33.4 32-36 g/dl Platelet Count 266 130-400 K/uL Mean Platelet Volume 10.5 7.4-10.4 fL Neutrophils (%) (Auto) 65.3 % Lymphocytes (%) (Auto) 25.0 % Monocytes (%) (Auto) 8.5 % Eosinophils (%) (Auto) 0.9 % Basophils (%) (Auto) 0.1 % Neutrophils # (Auto) 8.70 1.4-6.5 K/uL Lymphocytes # (Auto) 3.34 1.2-3.4 K/uL Monocytes # (Auto) 1.14 0.11-0.59 K/uL Eosinophils # (Auto) 0.12 0-0.5 K/uL Basophils # (Auto) 0.02 0-0.2 K/uL RDW Standard Deviation 41.1 36.4-46.3 fL RDW Coefficient of Variation 12.1 11.5-14.5 % Immature Granulocyte % (Auto) 0.2 % Immature Granulocyte # (Auto) 0.03 0.00-0.02 K/uL Prothrombin Time 10.4 9.0-12.0 SECONDS Prothromb Time International Ratio 1.0 0.9-1.1 Activated Partial Thromboplast Time 28.7 21.0-31.0 SECONDS Partial Thromboplastin Ratio 1.1 Venous Blood pH 7.44 7.36-7.41 Venous Blood Partial Pressure CO2 37 38.0-50.0 mmHg Venous Blood Partial Pressure O2 50 mmHg Venous Blood HCO3 24 mmol/L Venous Blood Oxygen Saturation 85.7 % Venous Blood Base Excess 0.3 mmol/L Sodium Level 140 136-145 mmol/L Potassium Level 3.3 3.5-5.1 mmol/L Chloride Level 105 98-107 mmol/L Carbon Dioxide Level 23 21-32 mmol/L Anion Gap 12.0 3-11 mmol/L Blood Urea Nitrogen 23 7-18 mg/dl Creatinine 0.90 0.60-1.20 mg/dl Est Creatinine Clear Calc Drug Dose 67.1 ml/min Estimated GFR () 84.0 Estimated GFR (Non- 72.5 BUN/Creatinine Ratio 25.9 10-20 Random Glucose 192 70-99 mg/dl Calcium Level 8.4 8.5-10.1 mg/dl Magnesium Level 1.9 1.8-2.4 mg/dl Total Bilirubin 0.3 0.2-1 mg/dl Aspartate Amino Transf (AST/SGOT) 13 15-37 U/L Alanine Aminotransferase (ALT/SGPT) 18 12-78 U/L Alkaline Phosphatase 86 45-117 U/L Total Creatine Kinase 97 26-192 U/L Creatine Kinase MB 1.0 0.5-3.6 ng/ml Creatine Kinase MB Ratio 1.0 0-3.0 Troponin I < 0.015 0-0.045 ng/ml Total Protein 7.1 6.4-8.2 gm/dl Albumin 3.2 3.4-5.0 gm/dl Globulin 3.9 2.5-4.0 gm/dl Albumin/Globulin Ratio 0.8 0.9-2 Procalcitonin < 0.05 0-0.5 ng/ml Bedside Lactic Acid Venous 2.63 0.90-1.70 mmol/L Bedside Troponin I < 0.030 0-0.045 ng/ml Bedside Glucose 239 70-90 mg/dl Test 6/11/17 01:40 08/04/16 06:16 08/04/16 11:36 08/04/16 16:17 Range/Units Urine Color YELLOW Urine Appearance CLEAR CLEAR Urine pH 5.0 4.5-7.5 Urine Specific [place] 1.015 1.000-1.030 Urine Protein NEG NEG Urine Glucose (UA) 2+ NEG Urine Ketones NEG NEG Urine Occult Blood NEG NEG Urine Nitrite NEG NEG Urine Bilirubin NEG NEG Urine Urobilinogen NEG NEG Urine Leukocyte Esterase NEG NEG White Blood Count 7.52 4.8-10.8 K/uL Red Blood Count 4.31 4.2-5.4 M/uL Hemoglobin 13.6 12.0-16.0 g/dL Hematocrit 39.8 37-47 % Mean Corpuscular Volume 92.3 80-100 fL Mean Corpuscular Hemoglobin 31.6 25-34 pg Mean Corpuscular Hemoglobin Concent 34.2 32-36 g/dl RDW Standard Deviation 41.0 36.4-46.3 fL RDW Coefficient of Variation 12.0 11.5-14.5 % Platelet Count 246 130-400 K/uL Mean Platelet Volume 10.5 7.4-10.4 fL Sodium Level 143 136-145 mmol/L Potassium Level 4.1 3.5-5.1 mmol/L Chloride Level 110 98-107 mmol/L Carbon Dioxide Level 23 21-32 mmol/L Anion Gap 10.0 3-11 mmol/L Blood Urea Nitrogen 19 7-18 mg/dl Creatinine 0.84 0.60-1.20 mg/dl Est Creatinine Clear Calc Drug Dose 72.0 ml/min Estimated GFR () 91.3 Estimated GFR (Non- 78.8 BUN/Creatinine Ratio 22.1 10-20 Random Glucose 307 70-99 mg/dl Lactic Acid Level 1.4 0.4-2.0 mmol/L Calcium Level 8.3 8.5-10.1 mg/dl Beta-Hydroxybutyric Acid 0.86 0.2-2.81 mg/dL Bedside Glucose 212 213 70-90 mg/dl Microbiology Results 08/03/16 Blood Culture, Received Pending 08/03/16 Blood Culture, Received Pending 08/04/16 Gram Stain - Final, Resulted 08/04/16 Sputum Culture, Resulted Pending
[2016-08-04] MEDS: LEVOFLOXACIN 750 MG TAB PO SCH (20:40)
[2016-08-04] MEDS ORDERED: INSULIN GLARGINE SOLOSTAR 100 UNITS/ML 3 ML PEN SC SCH (21:00)
[2016-08-05] VITALS (7 sets, daily range): BP systolic 106–153; BP diastolic 61–83; PULSE 68–91; TEMP 36.3–36.9; O2SAT 90–94
[2016-08-05] MEDS ORDERED: INSULIN ASPART 100 UNITS/ML 3 ML PEN SC ONE (02:00)
[2016-08-05 06:59] LABS: ESTIMATED AVERAGE GLUCOSE 171 mg/dl; HA1C FLAG Normal (Normal)
[2016-08-05] MEDS: ALBUT/IPRATROP 3MG/0.5MG NEB 3 ML VIAL INH SCH ×2 (07:00→11:21)
[2016-08-05 07:06] LABS: HEMATOCRIT 38.9 % (37-47); MEAN CELL VOLUME 92.6 fL (80-100); MEAN CORPUSCULAR HEMOGLOBIN 31.4 pg (25-34); MEAN CORPUSCULAR HGB CONC 33.9 g/dl (32-36); MEAN PLATELET VOLUME 10.2 fL (7.4-10.4); PLATELET COUNT 236 K/uL (130-400); WHITE BLOOD COUNT 14.84 K/uL (4.8-10.8)
[2016-08-05 07:38] LABS: BUN/CREATININE RATIO 20.1 (10-20); CALCIUM 8.2 mg/dl (8.5-10.1); CREATININE 0.68 mg/dl (0.60-1.20); POTASSIUM 4.5 mmol/L (3.5-5.1)
[2016-08-05] MEDS: ATORVASTATIN 40 MG TAB PO SCH (07:49)
[2016-08-05] MEDS: FLUTICASONE/SALMETEROL (ADVAIR) 500/50 INH 14 PUFF INH SCH (07:49)
[2016-08-05] MEDS: NICOTINE 21 MG/24 HR TDSY TD SCH (07:50)
[2016-08-05] MEDS: INSULIN ASPART 100 UNITS/ML 3 ML PEN SC SCH (07:56)
[2016-08-05] MEDS: HEPARIN SOD 5000 UNIT/0.5 ML CARP SQ SCH (07:57)
[2016-08-05] MEDS: INSULIN GLARGINE SOLOSTAR 100 UNITS/ML 3 ML PEN SC SCH (07:57)
--- NOTE | 2016-08-05 08:49 | Pharmacy Progress Note ---
Glycemic Control: Progress Nt Date of Service Aug 05, 2016. Scope Glycemic Pharmacist consulted for glycemic control and to write orders per [facility] inpatient glycemic control protocol. Objective Accuchecks BSG (last 24hrs): Test 08/04/16 11:36 08/04/16 16:17 08/04/16 20:26 08/05/16 01:21 Bedside Glucose 212 mg/dl (70-90) 213 mg/dl (70-90) 193 mg/dl (70-90) 148 mg/dl (70-90) Test 08/05/16 06:57 Random Glucose 167 mg/dl (70-99) Laboratory Data (last 24hrs) HbA1c: Test 08/04/16 06:16 Hemoglobin A1c 7.6 % (4.5-5.6) H Recent Pertinent Medications Outpatient Anti-diabetic Regimen: * [X] oral agents Assessment & Plan ASSESSMENT: * Patient is currently receiving ~ 61 units of insulin per day * 24 units of basal insulin * 37 units of prandial/correctional insulin * BSGs ranging 148 - 307mg/dl over the past 24hrs * Risk factors for insulin resistance are decreasing * Steroid dosing tapering --> changed from Solumedrol 40mg IV Q8hrs to Prednisone 20mg PO BID * Infection is being adequately treated/Pt status improving * Anticipating insulin regimen will need decreased for the next 24hrs d/t : * AM Fasting BSG = 167mg/dl, This is slightly above goal range but anticipate improvement in BSG with step down in steroid dosing, therefore will not increase at this time * Regimen is weighted towards prandial insulin but this is the preferred regimen for steroid induced hyperglycemia since steroids have their most profound effect on post-prandial BGSs. * Post-prandial BSGs are elevated/BSGs rise throughout the day but expect improvement with decreased steroid frequency and dosing PLAN FOR INPATIENT GLYCEMIC CONTROL: No changes needed at this time. Expect improvement with decreased steroid dosing and current orders. * Oral agents * Continue to hold at this time. Will resume 1-2 days prior to discharge if warranted * Basal insulin * Continue Lantus 10 units SQ BID * Give reduced dose of 7 units if BSG < 120mg/dl to help prevent hypoglycemia in an insulin naive patient with tapering steroids * Bolus insulin * NovoLog per scale ACHS or Q6hrs while NPO * Goal Range: Low 110 mg/dL - High 140 mg/dL * Correction Factor: 25 mg/dL/unit * Nutritional / Prandial insulin per carb ratio of 1 unit per 9 grams CHO consumed Looking ahead to discharge: A1c = 7.6% on 08/04/16 * This is just slightly above goal range (A1c < 7%) for patient based on age & co-morbidities. * Pt is only on metformin 500mg PO BIDM as an outpatient. Recommend increasing dosing up to metformin 1,000mg PO BIDM. * Dosage increases should be made in increments of 500 mg weekly, up to 2,000 mg/day PO, given in divided doses. Doses above 2000 mg/day may be better tolerated if divided and given 3 times per day with meals. Max: 2,550 mg/day PO , in divided doses * B12 supplementation may be necessary with termite control servicer metformin use * Support Patient Self-Management * Healthy Lifestyle (diet, exercise, and smoking cessation if applicable) * Disease self-management (SMBG) * Prevention of complications (BP, Lipid goals, Immunizations) * Consider outpatient Diabetes Self-Management Education & Support * Please note that the plan above was derived based on current level of insulin resistance and hospital stress. These recommendations are appropriate for inpatient admission only. Plan of care upon discharge will need to be reassessed to avoid potential outpatient hypo/hyperglycemia. Thank you.
--- NOTE | 2016-08-05 10:45 | Progress Note ---
Internal Med Progress Note Date of Service: Aug 05, 2016. Provider Documentation: SUBJECTIVE: The patient was seen and examined Feels a lot better today Denies any symptoms Likely to be discharged today OBJECTIVE: Vital Signs-as noted below Exam: General-No distress at rest Eyes-normal ENT-normal Neck-supple Lungs-Decreased breath sound bilaterally No wheezing and or crackles Heart-Regular,no murmur Abdomen-Benign,no masses,bowel sound present Extremities-No edema Neuro-AAOx3 Lab data as noted below. ASSESSMENT & PLAN: Exacerbation of Asthma/COPD Presented with SOB /COUGH and hypoxia , Better with Steroid,Nebs and Antibiotic CT scan possible infectious/inflammatory process-reviewed with Generation Manager Wll complete 7 day course Levaquin Taper for 2 weeks Continue Advair and nebs Pulmonary follow up in 2 weeks TOBACCO USE : Smokes 1 pk cig a day Nicotine patch ordered Smoking cessation counselling TYPE 2 DM : Can not tolerate Metformin BSG elevated > 200 Insulin SSI/BASAL Lantus ordered Pharmacy is managing Hb A1c -7.6 Likely to start Oral medication HYPERLIPIDEMIA : Cont statin DEPRESSION /ANXIETY DISORDER Cont home regimen of PRN Ativan CODE STATUS : DNR As per patient DVT PROPHYLAXIS : sub q heparin DISPOSITION : Discharge today Medicine follow up with Dr Wagner Pulmonary followup in 2 weeks Vital Signs: Date Time Temp Pulse Resp B/P (MAP) Pulse Ox O2 Delivery O2 Flow Rate FiO2 08/05/16 08:00 Room Air 08/05/16 07:59 36.3 72 19 106/61 (76) 92 Room Air 08/05/16 07:02 68 16 94 Nasal Cannula 2.0 08/05/16 04:06 36.9 82 17 124/81 (95) 94 Nasal Cannula 2.0 08/05/16 04:00 Room Air 08/05/16 00:00 36.9 88 20 128/72 (90) 90 Room Air 08/04/16 23:59 Room Air 08/04/16 20:06 37.0 99 17 109/58 (75) 90 Room Air 08/04/16 20:00 Room Air 08/04/16 19:14 56 16 93 Room Air 08/04/16 16:00 92 Room Air 08/04/16 15:49 36.8 89 16 135/71 (92) 90 Nasal Cannula 08/04/16 14:07 90 16 90 Room Air 08/04/16 12:10 36.4 85 16 143/76 (98) 92 Room Air 08/04/16 12:00 92 Room Air Lab Results: Results Past 24 Hours Test 08/04/16 11:36 08/04/16 16:17 08/04/16 20:26 08/05/16 01:21 Range/Units Bedside Glucose 212 213 193 148 70-90 mg/dl Test 08/05/16 06:57 Range/Units White Blood Count 14.84 4.8-10.8 K/uL Red Blood Count 4.20 4.2-5.4 M/uL Hemoglobin 13.2 12.0-16.0 g/dL Hematocrit 38.9 37-47 % Mean Corpuscular Volume 92.6 80-100 fL Mean Corpuscular Hemoglobin 31.4 25-34 pg Mean Corpuscular Hemoglobin Concent 33.9 32-36 g/dl RDW Standard Deviation 41.9 36.4-46.3 fL RDW Coefficient of Variation 12.4 11.5-14.5 % Platelet Count 236 130-400 K/uL Mean Platelet Volume 10.2 7.4-10.4 fL Sodium Level 145 136-145 mmol/L Potassium Level 4.5 3.5-5.1 mmol/L Chloride Level 112 98-107 mmol/L Carbon Dioxide Level 24 21-32 mmol/L Anion Gap 9.0 3-11 mmol/L Blood Urea Nitrogen 14 7-18 mg/dl Creatinine 0.68 0.60-1.20 mg/dl Est Creatinine Clear Calc Drug Dose 89.5 ml/min Estimated GFR () 114.9 Estimated GFR (Non- 99.2 BUN/Creatinine Ratio 20.1 10-20 Random Glucose 167 70-99 mg/dl Calcium Level 8.2 8.5-10.1 mg/dl
[2016-08-05] MEDS ORDERED: SITAGLIPTIN 100 MG TAB PO ONE (12:05)
[2016-08-05] MEDS ORDERED: FLUT0.15 NAE (12:19)
[2016-08-05] MEDS ORDERED: PRVHFAIN INH (12:19)
[2016-08-05] MEDS ORDERED: JNV100 PO (12:19)
[2016-08-05] MEDS ORDERED: Nicotine TD (12:19)
[2016-08-05] MEDS ORDERED: LCTX PO (12:19)
[2016-08-05] MEDS ORDERED: PRED20TA2 PO (12:19)
[2016-08-05] MEDS ORDERED: LVQ750 PO (12:19)
--- NOTE | 2016-08-05 12:21 | Discharge Instructions ---
Discharge Instructions Date of Service Aug 05, 2016. Admission Reason for Admission: Copd Exacerbation Discharge Discharge Diagnosis / Problem: Asthma Exacerbation,Diabetes Discharge Goals Goal(s): Prevent Disease Progression Activity Recommendations Activity Limitations: resume your previous activity . Instructions / Follow-Up Instructions / Follow-Up Dr Betty Osei on 08/12/16 at 10:45 AM.Please make an appointment with [facility] in 2 weeks Current Hospital Diet Patient's current hospital diet: Diabetes Type 2 Diet Discharge Diet Recommended Diet: Diabetes Type 2 Diet Pending Studies Studies pending at discharge: no Laboratory Results Hemoglobin A1c Test 08/04/16 06:16 Range/Units Estimated Average Glucose 171 mg/dl Hemoglobin A1c 7.6 H 4.5-5.6 % Medical Emergencies . Who to Call and When: Medical Emergencies: If at any time you feel your situation is an emergency, please call 911 immediately. . Non-Emergent Contact Non-Emergency issues call your: Primary Care Provider . Past History Medical & Surgical History: (1) Upper respiratory infection (2) COPD (chronic obstructive pulmonary disease) (3) Hypoxemia (4) Asthma with exacerbation . "Provider Documentation" section prepared by Vanessa Curtis. . VTE Core Measure Inpt VTE Proph given/why not?: Unfractionated heparin SQ
[2016-08-05] MEDS: LEVOFLOXACIN 750 MG TAB PO SCH (12:52)
--- NOTE | 2016-08-06 07:42 | Discharge Summary ---
Discharge Summary Date of Service Aug 06, 2016. Discharge Summary Admission Date: Aug 03, 2016 at 22:37 Discharge Date: Aug 05, 2016 Discharge Disposition: Home Principal Diagnosis: Asthma Exacerbation,Diabetes Secondary Diagnoses/Problems: Please see H&P and Hospital Progress note Consultations: Pulmonary Medication Reconciliation New Medications: Albuterol (Ventolin Hfa) 60 Puffs/5400 Mcg Aers 2 PUFFS INH Q6HWA PRN for SOB/Wheezing, #1 Fluticasone Propionate (Nasal) (Flonase Allergy Relief) 50 Mcg/Act Spr 1 PUFF PATRIA BID, #1 Lactobacillus Acidophilus (Lactinex) Tab 2 TAB PO BID, #30 TAB Levofloxacin (Levofloxacin) 750 Mg Tab 750 MG PO DAILY@11 for 5 Days, #5 TAB Sitagliptin (Januvia) 100 Mg Tab 100 MG PO DAILY for 30 Days, #30 TAB [Nicotine] () 21 TDSY 1 PATCH TD QAM for 30 Days, #30 Changed Medications: Prednisone (Prednisone Tab) 20 Mg Tab 20 MG PO UD for 12 Days, #15 (Changed from: 0 ; DAILY; "COPD KIT") 2 tabs PO daily for 3 days,1 and a 1/2 tabs PO daily for 3 days.1 po daily for 3 days and then 1/2 po daily for 3 days Continued Medications: Atorvastatin (Lipitor) 40 Mg Tab 40 MG PO DAILY PATIENT UNSURE IF 40MG OR 80MG. Fluticasone Prop/Salmeterol (Advair Diskus 500/50 60 Dose) 1 Ea Aerp 1 PUFF INH BID, #1 INHALER 6 Refills Ipratropium-Albuterol (Duoneb) 3 Ml Nebu 1 TREATMENT INH Q4H PRN for SOB/Wheezing Lorazepam (Ativan) 0.5 Mg Tab 0.5 MG PO TID PRN for Anxiety, TAB Tramadol (Ultram) 50 Mg Tab 50 MG PO Q6H PRN for Pain, TAB Discontinued Medications: Fluticasone Furoate-Vilanterol (Breo Ellipta) 1 Inh Inh 1 PUFF INH DAILY Metformin HCl (Metformin HCl) 500 Mg Tab 500 MG PO BID Admission Information HPI (per Admitting provider): 56 yo F with hx of type 2 DM , depression , ongoing tobacco use, COPD , presented to ED with complain of ongoing cough , SOB for the past 1 weeks pt mentioned that she felt sick stayed in bed all day last Friday , started to have cough with whitish sputum production mentions of having chills thinks the rain and mold has caused to worsened her COPD had significant SOB with ASENCIO has not seek any medical advice smokes 1 pk cig a day , has not been able to smoke in past 1 week due to SOB / cough mentions of smoking 1 cig today with Menthol in it ? to open up her airways in the ED , pt continues to cough was found to be hypoxic in room air 89 % spo2 improved to 93 % with 2 L 02 Past Medical/Surgical History Medical Problems: (1) ASTHMA, UNSPECIFIED Status: Chronic (2) Cholecystectomy Status: Resolved (3) Hysterectomy Status: Resolved Social History Smoking Status: Current Every Day Smoker Drug Use: none Marital Status: single Housing status: lives with family Occupational Status: employed Immunizations History of Influenza Vaccine: Yes Influenza Vaccine Date: Jan 10, 2013 History of Tetanus Vaccine?: Yes Tetanus Immunization Date: Nov 23, 2012 History of Pneumococcal: Unknown Pneumococcal Date: Sep 24, 2008 History of Hepatitis B Vaccine: Yes Multi-Drug Resistant Organisms History of MDRO: No Allergies Coded Allergies: Naproxen (Unverified Adverse Reaction, Intermediate, N/V, 03/12/13) Home Medications Scheduled Atorvastatin (Lipitor), 40 MG PO DAILY Fluticasone Furoate-Vilanterol (Breo Ellipta), 1 PUFF INH DAILY Fluticasone Prop/Salmeterol (Advair Diskus 500/50 60 Dose), 1 PUFF INH BID Metformin HCl (Metformin HCl), 500 MG PO BID Prednisone (Prednisone Tab), 0 PO DAILY Scheduled PRN Ipratropium-Albuterol (Duoneb), 1 TREATMENT INH Q4H PRN for SOB/Wheezing Lorazepam (Ativan), 0.5 MG PO TID PRN for Anxiety Tramadol (Ultram), 50 MG PO Q6H PRN for Pain Review of Systems Constitutional: + fever, + chills, + sweats, + weakness, + fatigue Respiratory: + cough, + sputum, + wheezing, + shortness of breath, + dyspnea on exertion, + dyspnea at rest Cardiovascular: + chest pain (with coughing ) Abdomen: + diarrhea (has chronic diarrhea with metformin ) Genitourinary - Female: No dysuria, No urinary frequency, No urinary urgency, No urinary incontinence, No urinary retention, No hematuria, No dysmenorrhea, No menorrhagia, No metrorrhagia, No rash, No vaginal bleeding, No vaginal discharge, No vaginal itching, No vulvodynia, No , No problem reported Neurologic: No memory loss, No paralysis, No weakness, No numbness/tingling, No vertigo, No balance problems, No problem reported Physical Exam Vital Signs Date Time Temp Pulse Resp B/P (MAP) Pulse Ox O2 Delivery O2 Flow Rate FiO2 08/03/16 21:49 94 Nasal Cannula 2.0 08/03/16 21:44 97 22 122/69 89 Room Air 08/03/16 21:30 91 08/03/16 21:26 91 Room Air 08/03/16 21:19 91 Room Air 08/03/16 21:13 37.5 96 20 135/81 89 Room Air General Appearance: no apparent distress Eyes: sclerae normal Respiratory/Chest: + respiratory distress, + decreased breath sounds, + rhonchi , + wheezing Cardiovascular: + tachycardia Abdomen/GI: normal bowel sounds, non tender, soft Extremities/Musculoskelatal: no pedal edema, normal range of motion Neurologic/Psych: alert, normal mood/affect, oriented x 3 Skin: normal color, warm/dry, no rash Lymphatic: no adenopathy Diagnostics Laboratory Results Results Past 24 Hours Test 08/03/16 21:45 08/03/16 21:46 08/03/16 21:49 Range/Units White Blood Count 13.35 4.8-10.8 K/uL Red Blood Count 4.47 4.2-5.4 M/uL Hemoglobin 13.8 12.0-16.0 g/dL Hematocrit 41.3 37-47 % Mean Corpuscular Volume 92.4 80-100 fL Mean Corpuscular Hemoglobin 30.9 25-34 pg Mean Corpuscular Hemoglobin Concent 33.4 32-36 g/dl Platelet Count 266 130-400 K/uL Mean Platelet Volume 10.5 7.4-10.4 fL Neutrophils (%) (Auto) 65.3 % Lymphocytes (%) (Auto) 25.0 % Monocytes (%) (Auto) 8.5 % Eosinophils (%) (Auto) 0.9 % Basophils (%) (Auto) 0.1 % Neutrophils # (Auto) 8.70 1.4-6.5 K/uL Lymphocytes # (Auto) 3.34 1.2-3.4 K/uL Monocytes # (Auto) 1.14 0.11-0.59 K/uL Eosinophils # (Auto) 0.12 0-0.5 K/uL Basophils # (Auto) 0.02 0-0.2 K/uL RDW Standard Deviation 41.1 36.4-46.3 fL RDW Coefficient of Variation 12.1 11.5-14.5 % Immature Granulocyte % (Auto) 0.2 % Immature Granulocyte # (Auto) 0.03 0.00-0.02 K/uL Prothrombin Time 10.4 9.0-12.0 SECONDS Prothromb Time International Ratio 1.0 0.9-1.1 Activated Partial Thromboplast Time 28.7 21.0-31.0 SECONDS Partial Thromboplastin Ratio 1.1 Venous Blood pH 7.44 7.36-7.41 Venous Blood Partial Pressure CO2 37 38.0-50.0 mmHg Venous Blood Partial Pressure O2 50 mmHg Venous Blood HCO3 24 mmol/L Venous Blood Oxygen Saturation 85.7 % Venous Blood Base Excess 0.3 mmol/L Sodium Level 140 136-145 mmol/L Potassium Level 3.3 3.5-5.1 mmol/L Chloride Level 105 98-107 mmol/L Carbon Dioxide Level 23 21-32 mmol/L Anion Gap 12.0 3-11 mmol/L Blood Urea Nitrogen 23 7-18 mg/dl Creatinine 0.90 0.60-1.20 mg/dl Est Creatinine Clear Calc Drug Dose 67.1 ml/min Estimated GFR () 84.0 Estimated GFR (Non- 72.5 BUN/Creatinine Ratio 25.9 10-20 Random Glucose 192 70-99 mg/dl Calcium Level 8.4 8.5-10.1 mg/dl Magnesium Level 1.9 1.8-2.4 mg/dl Total Bilirubin 0.3 0.2-1 mg/dl Aspartate Amino Transf (AST/SGOT) 13 15-37 U/L Alanine Aminotransferase (ALT/SGPT) 18 12-78 U/L Alkaline Phosphatase 86 45-117 U/L Total Creatine Kinase 97 26-192 U/L Creatine Kinase MB 1.0 0.5-3.6 ng/ml Creatine Kinase MB Ratio 1.0 0-3.0 Troponin I < 0.015 0-0.045 ng/ml Total Protein 7.1 6.4-8.2 gm/dl Albumin 3.2 3.4-5.0 gm/dl Globulin 3.9 2.5-4.0 gm/dl Albumin/Globulin Ratio 0.8 0.9-2 Bedside Lactic Acid Venous 2.63 0.90-1.70 mmol/L Bedside Troponin I < 0.030 0-0.045 ng/ml Microbiology Results 08/03/16 Blood Culture, Received Pending 08/03/16 Blood Culture, Received Pending Diagnostic Radiology CHEST ONE VIEW PORTABLE CLINICAL HISTORY: Fever, cough. Tobacco use. COMPARISON STUDY: Chest radiograph March 11, [address] March 13, 2013. FINDINGS: Lung volumes are normal. There is no pneumothorax or pleural effusion. Mild interstitial thickening is present. There is no lobar consolidation. Cardiac size is normal. Mediastinal contours are normal. There is no convincing evidence for pulmonary edema. There may be calcific tendinitis of the right rotator cuff. IMPRESSION: Mild nonspecific interstitial thickening. Impression Assessment and Plan SOB /COUGH /COPD EXACERBATION : presented with hypoxia , COPD exacerbation symptom improved with Nex tx , Solu medrol admit to tele 02 supplement IV steroid 40 mg q 8hrs Duo neb tx empiric abx with Levaquin Pulmonology eval requested -pt is known to Moe Wan PA-C /Dr Cohn TOBACCO USE : smokes 1 pk cig a day nicotine patch ordered smoking cessation requested TYPE 2 DM : on Metformin BSG elevated > 200 poorly compliant - mentions of not taking Metformin for GI symptom /Diarrhea insulin SSI/BASAL Lantus ordered HB A1c in am lab expected BSG to be elevated with IV steroids Pharmacy consulted for glycemic control HYPERLIPIDEMIA : cont statin DEPRESSION /ANXIETY DISORDER cont home regimen of PRN Ativan CODE STATUS : DNR As per patient DVT PROPHYLAXIS : sub q heparin DISPOSITION : to home when medically stable Medicine follow up with Dr Wagner Level of Care Telemetry Resuscitation Status DO NOT RESUSCITATE VTE Prophylaxis Given or contraindicated: Unfractionated heparin SQ Additional Copies To Lisa Osei D.O. <Electronically signed by Jackie Philip MD> Signed: 08/03/16 8516 Signed: Physical Exam (per Admitting): General Appearance: no apparent distress Eyes: sclerae normal Respiratory/Chest: + respiratory distress, + decreased breath sounds, + rhonchi, + wheezing Cardiovascular: + tachycardia Abdomen/GI: normal bowel sounds, non tender, soft Extremities/Musculoskelatal: no pedal edema, normal range of motion Neurologic/Psych: alert, normal mood/affect, oriented x 3 Skin: normal color, warm/dry, no rash Lymphatic: no adenopathy Hospital Course Exacerbation of Asthma/COPD Presented with SOB /COUGH and hypoxia , Better with Steroid,Nebs and Antibiotic CT scan possible infectious/inflammatory process-reviewed with Collection Agent Wll complete 7 day course Levaquin Taper for 2 weeks Continue Advair and nebs Pulmonary follow up in 2 weeks TOBACCO USE : Smokes 1 pk cig a day Nicotine patch ordered Smoking cessation counselling TYPE 2 DM : Can not tolerate Metformin BSG elevated > 200 Insulin SSI/BASAL Lantus ordered Pharmacy is managing Hb A1c -7.6 Likely to start Oral medication HYPERLIPIDEMIA : Cont statin DEPRESSION /ANXIETY DISORDER Cont home regimen of PRN Ativan CODE STATUS : DNR As per patient DVT PROPHYLAXIS : sub q heparin DISPOSITION : Discharge today Medicine follow up with Dr Wagner Pulmonary followup in 2 weeks Total time spent on discharge = This includes examination of the patient, discharge planning, medication reconciliation, and communication with other providers. Discharge Instructions Date of Service Aug 05, 2016. Admission Reason for Admission: Copd Exacerbation Discharge Discharge Diagnosis / Problem: Asthma Exacerbation,Diabetes Discharge Goals Goal(s): Prevent Disease Progression Activity Recommendations Activity Limitations: resume your previous activity . Instructions / Follow-Up Instructions / Follow-Up Dr Betty Osei on 08/12/16 at 10:45 AM.Please make an appointment with Collection Agent in 2 weeks Current Hospital Diet Patient's current hospital diet: Diabetes Type 2 Diet Discharge Diet Recommended Diet: Diabetes Type 2 Diet Pending Studies Studies pending at discharge: no Laboratory Results Hemoglobin A1c Test 08/04/16 06:16 Range/Units Estimated Average Glucose 171 mg/dl Hemoglobin A1c 7.6 H 4.5-5.6 % Medical Emergencies . Who to Call and When: Medical Emergencies: If at any time you feel your situation is an emergency, please call 911 immediately. . Non-Emergent Contact Non-Emergency issues call your: Primary Care Provider . Past History Medical & Surgical History: (1) Upper respiratory infection (2) COPD (chronic obstructive pulmonary disease) (3) Hypoxemia (4) Asthma with exacerbation . "Provider Documentation" section prepared by Vanessa Curtis. . VTE Core Measure Inpt VTE Proph given/why not?: Unfractionated heparin SQ <Electronically signed by Vanessa Curtis M.D.> Signed: 08/05/16 1221 Additional Copies To Lisa Osei D.O.
[2016-08-06] MEDS ORDERED: SITAGLIPTIN 100 MG TAB PO SCH (09:00)
== END 2016-08-05 13:10 | disposition home or self-care (01) | DRG 202 ==
LOC: C.EDB 21:12 → C.2T 22:37 → ENRESERV 22:47
PROVIDERS: ADMIT Hospitalist; ATTEND Internal Medicine
DX: J45.901 Unspecified asthma with (acute) exacerbation (principal); I50.30 Unspecified diastolic (congestive) heart failure; R09.02 Hypoxemia; E11.9 Type 2 diabetes mellitus without complications; E78.5 Hyperlipidemia, unspecified; F32.9 Major depressive disorder, single episode, unspecified; F41.9 Anxiety disorder, unspecified; F17.210 Nicotine dependence, cigarettes, uncomplicated; Z91.14 Patient's other noncompliance with medication regimen; Z66 Do not resuscitate; Z79.51 Long term (current) use of inhaled steroids; Z79.52 Long term (current) use of systemic steroids; Z79.84 Long term (current) use of oral hypoglycemic drugs; Z79.891 Long term (current) use of opiate analgesic; Z79.899 Other long term (current) drug therapy